=== PATIENT | female | born 1950 | race Two or more races ===

== ENCOUNTER → 2019-10-27 | Outpatient (CLI) | payer BC ==
[~2019-10-27] MED LIST: ATEN100T PO; CLON0.1T22 PO; HYDR25TA6 PO; LISI-167 PO; LOSA25TA25 PO; METO25TA35 PO; OMEG1CAP23 PO; VITA1TAB56 PO
== END | disposition home or self-care (01) ==
LOC: CFH 09:12
PROVIDERS: ATTEND Family Medicine
DX: Z12.31 Encounter for screening mammogram for malignant neoplasm of breast (principal)
CPT/HCPCS: 77067

== ENCOUNTER 2019-11-11 08:20 | Outpatient (CLI) | payer BC | END 2019-11-11 23:59 | disposition home or self-care (01) | LOC: CFH 08:20 | PROVIDERS: ATTEND Family Medicine | DX: M51.37 Other intervertebral disc degeneration, lumbosacral region (principal); M21.20 Flexion deformity, unspecified site; M25.78 Osteophyte, vertebrae; M48.07 Spinal stenosis, lumbosacral region | CPT/HCPCS: 72114 ==

== ENCOUNTER 2020-10-13 21:14 | Emergency (ER) | payer BC ==
[~2020-10-13] VITALS: Ht 160 cm; Wt 94.6 kg
--- NOTE | 2020-10-13 22:45 | NUR ---
UA SENT TO LAB.
[2020-10-13 22:51] LABS: MICROSCOPIC NOT IND
[2020-10-13 23:04] LABS: BASOPHILS % (AUTO) 0 % (0-1); EOSINOPHILS % (AUTO) 2 % (1-7); LYMPHOCYTES % (AUTO) 11 % (22-44); MEAN CORPUSCULAR HEMOGLOBIN 29.8 pg (27.0-34.8); MEAN CORPUSCULAR HGB CONC 33.6 g/dL (32.4-35.8); MEAN PLATELET VOLUME 7.6 fL (7.4-10.4); MONOCYTES % (AUTO) 6 % (2-9); NEUTROPHILS % (AUTO) 80 % (42-75); PLATELET COUNT 235 x10^3/uL (130-400); RED BLOOD COUNT 4.63 x10^6/uL (3.82-5.3); RED CELL DISTRIBUTION WIDTH 14.5 % (9.6-15.2)
--- NOTE | 2020-10-13 23:10 | NUR ---
PT TO ROOM FROM LOBBY
[2020-10-13 23:11] LABS: MD NO
--- NOTE | 2020-10-13 23:11 | NUR ---
INITIAL PT CONTACT. PT PRESENTS TO ED C/O SEVERE PAIN ON RIGHT SIDE OF THORAX SINCE THURSDAY, AND HASN'T BEEN ABLE TO SLEEP WELL. "I TOOK NAPROXEN A FEW HOURS AGO AND NOW THE PAIN IS REALLY STARTING TO KICK IN". PT SITTING URPIGHT ON GURPHUONG, VSS. AT BEDSIDE. PT DENIES ANY NEEDS AT THIS TIME. CALL LIGHT AND PERSONAL BELONGINGS WITHIN REACH. SPOUSE AT BEDSIDE
[2020-10-13 23:14] LABS: ANION GAP 2 mmol/L (5-15); CALCIUM 8.5 mg/dL (8.5-10.1); CHLORIDE 111 mmol/L (98-107); CREATININE 1.76 mg/dL (0.55-1.02)
[2020-10-13 23:55] LABS: ALBUMIN 3.5 g/dL (3.4-5.0); BILIRUBIN, DIRECT 0.1 mg/dL (0.1-0.2)
[2020-10-13 23:57] LABS: BILIRUBIN,INDIRECT 0.4 mg/dL (0.0-2.0); BILIRUBIN,TOTAL 0.5 mg/dL (0.2-1.0); TOTAL PROTEIN 7.9 g/dL (6.4-8.2)
[2020-10-14] MEDS ORDERED: SODIUM CHLORIDE 0.9% 1,000ML IVBOLUS ONE
[2020-10-14] MEDS ORDERED: ONDANSETRON 2MG/ML, 2ML IVPush ONE
[2020-10-14] MEDS ORDERED: SODIUM CHLORIDE FLUSH 10ML SYR IVF ONE
[2020-10-14] MEDS ORDERED: MORPHINE SULFATE 4 MG/ML, 1ML ONE ×2 (00:07→00:30)
[2020-10-14] MEDS ORDERED: ONDANSETRON 2MG/ML, 2ML ONE (00:07)
[2020-10-14] MEDS: MORPHINE SULFATE 4 MG/ML, 1ML IVPush PRN ×2 (00:09→00:32)
--- NOTE | 2020-10-14 00:29 | NUR ---
PT RETURNED FROM IMAGING. C/O PAIN. WILL MEDICATE PER EMAR
--- NOTE | 2020-10-14 01:04 | NUR ---
PT AMBULATORY WITH STEADY GAIT WITH THIS RN TO BATHROOM. 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 NO ADDITIONAL NEEDS AT THIS TIME. CALL LIGHT AND PERSONAL BELONGINGS WITHIN REACH.
[2020-10-14 01:35] VITALS: BP 163/78
--- NOTE | 2020-10-14 01:36 | NUR ---
Patient given discharge instructions and they have confirmed that they understand the instructions. Patient ambulatory with steady gait.
[2020-10-14] MEDS ORDERED: OMNIPAQUE 350 MG/ML, 100ML BOTTLE ONE (04:44)
== END 2020-10-14 01:41 | disposition home or self-care (01) ==
LOC: ED 10-14 01:40
DX: N13.2 Hydronephrosis with renal and ureteral calculous obstruction (principal); I10 Essential (primary) hypertension; Z88.0 Allergy status to penicillin
CPT/HCPCS: 36415; 74177; 80048; 80076; 81003; 83690; 85025; 96361; 96374; 96375; 99285; J2270; J2405; J7030; Q9967

== ENCOUNTER 2021-02-06 09:34 | Outpatient (CLI) | payer BC | END 2021-02-06 23:59 | disposition home or self-care (01) | LOC: RAD 09:34 | PROVIDERS: ATTEND Family Medicine | DX: S22.31XA Fracture of one rib, right side, initial encounter for closed fracture (principal); M77.31 Calcaneal spur, right foot; R07.89 Other chest pain; X58.XXXA Exposure to other specified factors, initial encounter; Y93.89 Activity, other specified; Y92.89 Other specified places as the place of occurrence of the external cause; Y99.8 Other external cause status ==

== ENCOUNTER 2021-02-20 08:54 | Outpatient (CLI) | payer BC | END 2021-02-20 23:59 | disposition home or self-care (01) | LOC: CFH 08:54 | PROVIDERS: ATTEND Family Medicine | DX: Z12.31 Encounter for screening mammogram for malignant neoplasm of breast (principal) | CPT/HCPCS: 77063; 77067 ==